=== PATIENT | female | born 1975 | race Asian ===

== ENCOUNTER 2018-03-29 12:52 | Emergency (ER) | payer OTHER ==
--- NOTE | 2018-03-29 13:01 | EDPHY ---
H & P Time Seen by Provider: 03/29/18 12:58 HPI/ROS: 42 yo F presents c/o got some powder in her eye at work 3 days ago, washed it out immediately , but comes in today because her eye still feels irritated, itchy. She is unsure of the name of the powder. She denies difficulty with her vision, pain or discharge from the eye. Her main complaint is that it feels itchy and she is concerned there may still be something in her eye. Review of systems as per hpi General no fever no chills no weakness HEENT no eye pain no eye discharge. No eye redness, no sore throat Respiratory no cough, no shortness of breath Cardiac no chest pain, no peripheral edema GI no abdominal pain, no diarrhea, no constipation, no nausea, no vomiting no flank pain, no hematuria, no dysuria Musculoskeletal no myalgias, no joint pain Heme no easy bruising, no easy bleeding Endo no polyuria, no polydipsia Skin no rashes, no pruritus Neuro no syncope, no dizziness, no headaches Psych is no suicidal ideation, no homicidal ideation Past Medical/Surgical History: non contributory Social History: no alcohol or drug use Smoking Status: Never smoked Physical Exam: 42 yo F VA 20/40 right eye, 20/25 left eye 20/25 both eyes right eye- no erythema, no discharge, no visible fb no pooling of flourescein, no uptake eomi Constitutional: Initial Vital Signs Temperature (C) 36.6 C 03/29/18 13:06 Heart Rate 82 03/29/18 13:06 Respiratory Rate 16 03/29/18 13:06 Blood Pressure 138/85 H 03/29/18 13:06 O2 Sat (%) 96 03/29/18 13:06 O2 Delivery Mode Room Air Allergies/Adverse Reactions: No Known Allergies Allergy (Unverified 03/20/15 14:31) Home Medications: Medication Instructions Recorded Dextran 70/Hypromellose 2 drops OP Q4 5 Days #1 btl 03/29/18 [Artificial Tears Eye Drops] Ketotifen Fumarate 2 drops OP Q4 PRN 5 Days #1 btl 03/29/18 Medical Decision Making ED Course/Re-evaluation: Patient here for evaluation of itchy right eye after work exposure 3 days ago to an unknown powder. No findings on eye exam Right eye irrigated with 1 L normal saline Impression Chemical conjunctivitis Plan Tobra ophthalmic drops to cover if there is a small insult to the cornea though non visualized on exam Artificial tears for dry eye Ketotifen for itching Differential Diagnosis: Differential diagnosis considered but not limited to: Chemical conjunctivitis, chemical burn, retained foreign body, corneal abrasion - Data Points Medications Given: Discontinued Medications Tobramycin (Tobrex 0.3% Opht Drops Prepack) 1 btl TAKEHOME EDNOW ONE Stop: 03/29/18 13:34 Last Admin: 03/29/18 14:23 Dose: 1 btl Departure - Departure Disposition: Home, Routine, Self-Care Clinical Impression: Chemical conjunctivitis of right eye Condition: Good Instructions: Tobramycin (Into the eye), Ketotifen (Into the eye), Chemical Eye Chung (ED), Conjunctivitis (ED) Referrals: NONE *PRIMARY CARE P,. [Primary Care Provider] - As per Instructions Amaya Clemons MD [Medical Doctor] - As per Instructions Prescriptions: Dextran 70/Hypromellose [Artificial Tears Eye Drops] 2 drops OP Q4 5 Days #1 btl Ketotifen Fumarate 2 drops OP Q4 PRN 5 Days #1 btl PRN Reason: Itching
[2018-03-29] MEDS ORDERED: PROPARACAINE/FLUORESCEIN SOD 5 ML OPHT.BTL ONE (13:05)
[2018-03-29] MEDS ORDERED: TOBRAMYCIN 0.3% SOLN PREPACK OPHT.BTL TAKEHOME ONE (13:33)
[2018-03-29 14:29] VITALS: BP 127/75
== END 2018-03-29 14:28 | disposition home or self-care (01) ==
LOC: CED 12:52
DX: T65.94XA Toxic effect of unspecified substance, undetermined, initial encounter (principal); H10.211 Acute toxic conjunctivitis, right eye; Y99.0 Civilian activity done for income or pay